=== PATIENT | female | born 1955 | race Caucasian/White ===

== ENCOUNTER 2022-03-23 10:12 | Inpatient (IN) | payer MEDICARE, OTHER, SELFPAY ==
[2022-03-23] VITALS (10 sets, daily range): BP systolic 120–157; BP diastolic 64–75; PULSE 55–78; RESP 18–20; TEMP 36.7–37.2; O2SAT 88–95; BMI 42.4; BMI 42.6
--- NOTE | 2022-03-23 10:44 | CRLHL7_ITS ---
For Patients: As a result of the Century Cures Act, medical imaging exams and procedure reports are released immediately into your electronic medical record. You may view this report before your referring provider. If you have questions, please contact your health care provider. HISTORY: Fever. Shortness of breath. TECHNIQUE: Portable frontal view the chest. COMPARISON: None. FINDINGS: No airspace consolidation. No pleural effusion or pneumothorax. Pulmonary vasculature and cardiomediastinal silhouette are unremarkable. IMPRESSION: No cardiopulmonary abnormality. Dictated by Colten Mendoza MD @ 03/23/2022 12:03:13 PM (Electronically Signed)
--- NOTE | 2022-03-23 10:46 | ED.GENADULT ---
HPI - General Adult General Time Seen by Provider: 10:45 Date Seen: 03/23/22 Chief complaint: Fever Stated complaint: Fever Time Seen by Provider: 03/23/22 10:33 Source: patient Mode of arrival: wheelchair Limitations: no limitations History of Present Illness HPI narrative: The patient is a 67 year white female who lives in [place], doctors with [place] doctor in [place], whose family has been sick for the last week. In fact her family has been sick pre dating her illness, which includes some diarrhea, malaise, fever. Her daughter and granddaughter actually in the ER presently with similar symptoms. She was not immunized for COVID as she was told this could cause ?blood clots?. She is on Coumadin for that purpose. Her BMI is very elevated. She reports that she has a heart murmur, high cholesterol, and is on Coumadin. [place] in [place]. No leg swelling or edema, no chest pain. Her O2 sat on room air was 88% when she arrived. She is not on home oxygen. Related Data Home Medications Medication Instructions Recorded Confirmed albuterol sulfate 90 mcg/actuation 1 - 2 puff INHALATION QID PRN 03/23/22 03/23/22 aerosol inhaler (Ventolin HFA) azelastine 0.05 % eye drops 1 drp OPHTHALMIC (EYE) BID 03/23/22 03/23/22 cetirizine 10 mg tablet 10 mg PO DAILY 03/23/22 03/23/22 cholecalciferol (vitamin D3) 50 50 mcg PO DAILY 03/23/22 03/23/22 mcg (2,000 unit) capsule clotrimazole 1 % topical cream 1 applic TOPICAL BID 03/23/22 03/23/22 conjugated estrogens 0.625 mg/gram 0.625 mg VAGINAL .QHS 03/23/22 03/23/22 vaginal cream (Premarin) diltiazem HCl 300 mg capsule,24 300 mg PO DAILY 03/23/22 03/23/22 hr,extended release (Tiadylt ER) emollient (Vanicream topical) 1 applic TOPICAL DAILY PRN 03/23/22 03/23/22 epinephrine 0.3 mg/0.3 mL 0.3 ml IM Q5-15M PRN 03/23/22 03/23/22 injection, auto-injector (EpiPen) fluticasone propionate 50 2 spray INTRANASAL DAILY 03/23/22 03/23/22 mcg/actuation nasal spray,suspension nystatin 100,000 unit/gram topical 1 applic TOPICAL BID PRN 03/23/22 03/23/22 cream nystatin 100,000 unit/gram topical 1 applic TOPICAL BID PRN 03/23/22 03/23/22 powder (Nystop) pravastatin 80 mg tablet 80 mg PO .QHS 03/23/22 03/23/22 trazodone 100 mg tablet 100 mg PO .QHS 03/23/22 03/23/22 venlafaxine 75 mg capsule,extended 75 mg PO DAILY 03/23/22 03/23/22 release 24 hr warfarin 5 mg tablet (Jantoven) 5 mg PO DAILY 03/23/22 03/23/22 Allergies Allergy/AdvReac Type Severity Reaction Status Date / Time duloxetine Allergy Severe Anaphylaxis Verified 03/23/22 11:11 levofloxacin [From Levaquin] Allergy Severe Anaphylaxis Verified 03/23/22 11:11 doxepin Allergy Unknown Verified 03/23/22 11:11 erythromycin base Allergy Unknown Verified 03/23/22 11:11 fesoterodine [From Toviaz] Allergy Itching Verified 03/23/22 11:11 montelukast Allergy Hives Verified 03/23/22 11:11 morphine Allergy SOB Verified 03/23/22 11:11 oxybutynin Allergy Hives Verified 03/23/22 11:11 pregabalin [From Lyrica] Allergy Hives Verified 03/23/22 11:11 sertraline [From Zoloft] Allergy Hives Verified 03/23/22 11:11 shellfish derived Allergy Itching Verified 03/23/22 11:11 Sulfa (Sulfonamide Allergy Hives Verified 03/23/22 11:11 Antibiotics) citalopram AdvReac Mild Blurred Verified 03/23/22 11:11 Vision Latex, Natural Rubber AdvReac Mild Rash Verified 03/23/22 11:11 bupropion [From Wellbutrin] AdvReac Verified 03/23/22 11:11 NSAIDS (Non-Steroidal AdvReac Diarrhea Verified 03/23/22 11:11 Anti-Inflamma Penicillins AdvReac Verified 03/23/22 11:11 Cilantro Allergy Severe Anaphylaxis Uncoded 03/23/22 11:11 Histamine Allergy Mild Hives Uncoded 03/23/22 11:11 Xanax Allergy Mild Hives Uncoded 03/23/22 11:11 Adhesive Tape - Silicones AdvReac Mild Rash Uncoded 03/23/22 11:11 Review of Systems Status of ROS: Reports: 10 or more systems reviewed and unremarkable except as noted in History and below PFSH [facility] Medical History Chronic pain syndrome Depression DVT (deep venous thrombosis) GERD (gastroesophageal reflux disease) History of cystocele Hyperlipemia Hypertension Migraine Morbid obesity JOSE RAFAEL (obstructive sleep apnea) Osteoarthritis Rectal prolapse Rhinitis, allergic Vitamin D deficiency Surgical History History of hysterectomy History of lumpectomy of right breast History of oophorectomy Family History Daughter DVT (deep venous thrombosis) Mother DVT (deep venous thrombosis) Breast cancer Father Lung cancer Social History Narrative: patient lives in [place] with her daughter, Mattie, daughter's fiance and granddaughter. Her daughter Mattie is healthcare power of charger operator. Patient is undecided about CPR so by default will have her be full code. She clearly states that she does not want to be intubated if she develops respiratory failure with COVID. She is not vaccinated for COVID because she heard that the vaccine causes blood clots. Highest level of school completed/degree received: high school graduate Smoking Status: Former smoker Do you use any of these nicotine containing products: None Second hand tobacco smoke exposure: No How often do you have a drink containing alcohol: monthly or less Alcohol type: hard liquor Alcohol type details: Melissa How many standard drinks containing alcohol do you have on a typical day: 1 or 2 How often do you have six or more drinks on one occasion: Never AUDIT-C Alcohol total score: 1 Non-prescribed substance use: denies use Non-prescribed substance use details: states she has a pain contract Caffeine: Yes (2 cups coffee daily) service: No Exam Narrative: Exam Narrative: Objective: The patient is obese, noncyanotic. Talks in even and nonlabored sentences The pulse oximetry is 80% on room air, 95% with 2 L nasal cannula. She is afebrile HEENT is unremarkable other than dry mucous membranes in the mouth, no facial asymmetry, no scleral icterus Neck is supple Chest diminished air exchange bilaterally no obvious rales or wheezing Heart rate and rhythm regular 2/6 systolic murmur, occasional ectopic beat Abdomen obese benign nontender Extremities without edema, neurologic nonfocal Skin exam is unremarkable, warm and dry. Const: Vital Signs, click to edit/add: Vital Signs - 24 hr 03/23/22 10:22 03/23/22 11:20 Temperature 98.2 F Pulse Rate [Pulse Oximeter] 62 Respiratory Rate 20 Blood Pressure [[facility]] 134/74 Pulse Oximetry 88 95 Course Vital Signs Vital signs: Initial Vital Signs Temperature 98.2 F 03/23/22 10:22 Temperature Source Oral 03/23/22 10:22 Pulse Rate 62 03/23/22 10:22 Respiratory Rate 20 03/23/22 10:22 Blood Pressure 134/74 03/23/22 10:22 Blood Pressure Mean 94 03/23/22 10:22 Blood Pressure Position Supine 03/23/22 10:22 Pulse Oximetry 88 03/23/22 10:22 Oxygen Delivery Method 03/23/22 10:22 Vital Signs Temperature 98.2 F 03/23/22 10:22 Pulse Rate 62 03/23/22 10:22 Respiratory Rate 20 03/23/22 10:22 Blood Pressure 134/74 03/23/22 10:22 Pulse Oximetry 88 03/23/22 10:22 Temperature 98.1 F 03/23/22 15:10 Pulse Rate 62 03/23/22 15:10 Respiratory Rate 20 03/23/22 15:10 Blood Pressure 120/64 03/23/22 15:10 Pulse Oximetry 93 03/23/22 15:10 Medical Decision Making MDM Narrative Medical decision making narrative: The patient presents with hypoxia and generalized malaise, fever, weakness. She is unvaccinated for COVID, and her family members have been sick with a similar type illness. I suspect she has COVID, rule out pneumonia, rule out arrhythmia, rule out metabolic abnormality. The fluids and laboratories will be done. Lab Data Labs: Lab Results 03/23/22 03/23/22 03/23/22 Range/Units 11:20 11:20 11:20 WBC 3.77 L (4.50-11.00) K/uL RBC 3.64 L (4.00-5.20) m/uL Hgb 13.9 (12.0-16.0) gm/dL Hct 41.3 (33.0-51.0) % MCV 114 H (80-100) fL MCH 38 H (26-34) pg MCHC 34 (32-36) gm/dL RDW Coeff of Vinod 13.5 (11.5-15.5) % Plt Count 236 (140-440) K/uL Neut % (Auto) 72.1 H (42.0-72.0) % Lymph % (Auto) 20.2 (20-44) % Nicholas % (Auto) 6.9 (0.0-11.0) % Eos % (Auto) 0.0 (0.0-7.0) % Baso % (Auto) 0.3 (0.0-3.0) % Neut # (Auto) 2.70 (1.7-7.0) K/uL Lymph # (Auto) 0.80 L (0.90-2.90) K/uL Nicholas # (Auto) 0.30 (0.00-0.90) K/UL Eos # (Auto) 0.00 (0.00-0.50) K/uL Baso # (Auto) 0.00 (0.00-0.30) K/uL Abs Immat Gran (auto) 0.02 (0.00-0.30) K/uL Diff Slide Review Acceptable Review (Acceptable) INR 1.37 H (0.91-1.10) Sodium 137 (135-149) mmol/L Potassium 3.5 L (3.6-5.1) mmol/L Chloride 104 (96-114) mmol/L Carbon Dioxide 30 (20-32) mmol/L BUN 12 (7-30) mg/dL Creatinine 0.7 (0.5-1.5) mg/dL Estimated Creat Clear 53.56 Glucose 100 (60-115) mg/dL Lactate (0.5-1.9) mmol/L Calcium 8.3 L (8.4-10.6) mg/dL Total Bilirubin 0.3 (0.1-1.5) mg/dL Direct Bilirubin 0.3 (0.0-0.5) mg/dL AST 63 H (12-35) U/L ALT 37 H (4-35) U/L Alkaline Phosphatase 44 (40-150) U/L C-Reactive Protein < 0.5 L (0.5-1.0) mg/dL NT-Pro-B Natriuret Pep 777 H (0-125) PG/mL Total Protein 6.4 (6.0-8.3) g/dL Albumin 3.6 (3.3-5.0) g/dL SARS-CoV-2 (PCR) (Negative) POC Troponin I (0.01-0.04) ng/ml 03/23/22 03/23/22 03/23/22 Range/Units 11:20 11:20 11:20 WBC (4.50-11.00) K/uL RBC (4.00-5.20) m/uL Hgb (12.0-16.0) gm/dL Hct (33.0-51.0) % MCV (80-100) fL MCH (26-34) pg MCHC (32-36) gm/dL RDW Coeff of Vinod (11.5-15.5) % Plt Count (140-440) K/uL Neut % (Auto) (42.0-72.0) % Lymph % (Auto) (20-44) % Nicholas % (Auto) (0.0-11.0) % Eos % (Auto) (0.0-7.0) % Baso % (Auto) (0.0-3.0) % Neut # (Auto) (1.7-7.0) K/uL Lymph # (Auto) (0.90-2.90) K/uL Nicholas # (Auto) (0.00-0.90) K/UL Eos # (Auto) (0.00-0.50) K/uL Baso # (Auto) (0.00-0.30) K/uL Abs Immat Gran (auto) (0.00-0.30) K/uL Diff Slide Review (Acceptable) INR (0.91-1.10) Sodium (135-149) mmol/L Potassium (3.6-5.1) mmol/L Chloride (96-114) mmol/L Carbon Dioxide (20-32) mmol/L BUN (7-30) mg/dL Creatinine (0.5-1.5) mg/dL Estimated Creat Clear Glucose (60-115) mg/dL Lactate 0.7 (0.5-1.9) mmol/L Calcium (8.4-10.6) mg/dL Total Bilirubin (0.1-1.5) mg/dL Direct Bilirubin (0.0-0.5) mg/dL AST (12-35) U/L ALT (4-35) U/L Alkaline Phosphatase (40-150) U/L C-Reactive Protein (0.5-1.0) mg/dL NT-Pro-B Natriuret Pep (0-125) PG/mL Total Protein (6.0-8.3) g/dL Albumin (3.3-5.0) g/dL SARS-CoV-2 (PCR) POSITIVE (Negative) POC Troponin I 0.03 (0.01-0.04) ng/ml Discharge Plan Discharge Clinical Impression: Fever, Weakness, Hypoxia Patient Disposition: Admitted As Inpatient Condition: Stable Activity Level: Light activity Discharge Diet: Diabetic
--- NOTE | 2022-03-23 10:51 | ED.NURSE ---
Heads up to house sup on possible admission.
[2022-03-23] MEDS: ACETAMINOPHEN 500 MG TABLET 1000 MG PO (11:27)
[2022-03-23] MEDS: 0.9 % SODIUM CHLORIDE 1000 ml 1,000 ML 6000 ML IV (11:27)
[2022-03-23 11:38] LABS: Lactate* 0.7 mmol/L (0.5-1.9)
[2022-03-23 11:44] LABS: Basophils Percent Auto 0.3 % (0.0-3.0); Hematocrit 41.3 % (33.0-51.0); Hemoglobin* 13.9 gm/dL (12.0-16.0); Immature Granulocytes Abs Auto 0.02 K/uL (0.00-0.30); Lymphocytes Percent Auto 20.2 % (20-44); Mean Corpuscular HGB Conc 34 gm/dL (32-36); Mean Corpuscular Hemoglobin 38 pg (26-34); Mean Corpuscular Volume 114 fL (80-100); Monocytes Percent Auto 6.9 % (0.0-11.0); Neutrophils Percent Auto 72.1 % (42.0-72.0); Platelet Count* 236 K/uL (140-440); RDW Coefficient of Variation % 13.5 % (11.5-15.5); Red Blood Count 3.64 m/uL (4.00-5.20); White Blood Count* 3.77 K/uL (4.50-11.00)
[2022-03-23 11:58] LABS: Chloride* 104 mmol/L (96-114)
[2022-03-23 11:59] LABS: Albumin* 3.6 g/dL (3.3-5.0); Potassium* 3.5 mmol/L (3.6-5.1); Sodium* 137 mmol/L (135-149)
[2022-03-23 12:02] LABS: Alkaline Phosphatase* 44 U/L (40-150); Aspartate Amino Transferase* 63 U/L (12-35); Bilirubin Direct* 0.3 mg/dL (0.0-0.5); Bilirubin Total* 0.3 mg/dL (0.1-1.5); Blood Urea Nitrogen* 12 mg/dL (7-30); Carbon Dioxide* 30 mmol/L (20-32); Creatinine* 0.7 mg/dL (0.5-1.5); Est. Creatinine Clearance* 53.56; Estimated Glomerular Filt Rate 93.56; INR 1.37 (0.91-1.10); Prothrombin Time 17.2 Seconds; Total Protein* 6.4 g/dL (6.0-8.3)
[2022-03-23 12:03] LABS: Alanine Aminotransferase* 37 U/L (4-35); Calcium* 8.3 mg/dL (8.4-10.6); Glucose* 100 mg/dL (60-115)
[2022-03-23 12:04] LABS: Troponin, Point-of-Care* 0.03 ng/ml (0.01-0.04)
[2022-03-23 12:06] LABS: Slide Review Reflex Yes
[2022-03-23 12:08] LABS: Slide Review Acceptable Review (Acceptable)
[2022-03-23 12:09] LABS: C Reactive Protein* < 0.5 mg/dL (0.5-1.0)
[2022-03-23 12:11] LABS: NT Pro B Type NatriureticPept* 777 PG/mL (0-125)
[2022-03-23 12:13] LABS: SARS PCR* POSITIVE (Negative)
--- NOTE | 2022-03-23 13:18 | W.PC.EDHO ---
Primary Language: Preferred Language: Orientation Status: [] Alert & Oriented [X] Slight Confusion [] Known Dx Dementia Transfers By: [X] Assist of 1 [] Assist of 2 [] Lift IV Size:20g L upper forearm IV Site Location: Active Medications Generic Name Dose Route Start Last Admin Trade Name Juan PRN Reason Stop Dose Admin Remdesivir 200 mg/ Sodium 290 mls @ 290 mls/hr 03/23/22 13:00 Chloride IVPB 03/23/22 13:59 ONCE ONE Description of Symptoms ED Triage Present Problem Pt arrives w/ multiple symptoms. HUSTON, fever, Description fatigue, and diarrhea. Symptoms started on Thursday. Has been around her family who is also sick. Been using Tylenol for fever. Pt is NOT covid vaccinated. ED Triage Date of Onset of 03/21/22 Symptoms Pain Pain Description [generalized] Throbbing,Chronic Pain Description [generalized] Chronic Pain Intensity [generalized] 5 Pain Intensity 7 Pain Scale Used [generalized] Numeric (1 - 10) Pain Scale Used Numeric (1 - 10) IV Insertion/Site Date of IV Line Insertion [ 03/23/22 Left Upper Arm] Oxygen Administration Pulse Oximetry 95 Pulse Oximetry 88 Oxygen Delivery Method Nasal Cannula Oxygen Delivery Method Room Air Oxygen Flow Rate 3
[2022-03-23] MEDS: dexAMETHasone 2 MG TABLET 6 MG PO (13:25)
--- NOTE | 2022-03-23 13:27 | P.IMHP_ITS ---
Hospitalist- H&P: HPI History of Present Illness Time Seen by Provider: 13:00 Date Seen: 03/23/22 Chief complaint: Fever Narrative: Karla Gamez is a 67 year old female presenting with a 2 day history of fatigue, malaise, cough, dyspnea, fever. Temperature has been between 99 and 102? over the last 2 days. She lives with her daughter, daughter's fiance and granddaughter who all have COVID infection. She is not vaccinated. She has lost her appetite but has been able to eat some soup. Today she had a little bit of diarrhea. No blood. She has no abdominal pain and no chest pain. 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 Review of Systems Narrative: She reports no new pain problems. She has disabling arthritis of the hip and knees. She reports she is pending weight loss so she can have a joint replacement surgery in the future. No chest pain or abdominal pain or headache. No visual disturbance. no trouble swallowing. No trouble eating but no appetite. No vomiting. Bowel function was normal until this morning when she had some diarrhea. She has struggled recently with a groin rash. She does have urinary incontinence. [facility] Medical History (Updated 03/23/22 @ 13:48 by Ross Donovan MD) Chronic pain syndrome Depression DVT (deep venous thrombosis) GERD (gastroesophageal reflux disease) History of cystocele Hyperlipemia Hypertension Migraine Morbid obesity JOSE RAFAEL (obstructive sleep apnea) Osteoarthritis Rectal prolapse Rhinitis, allergic Vitamin D deficiency Surgical History (Updated 03/23/22 @ 13:33 by Ross Donovan MD) History of hysterectomy History of lumpectomy of right breast History of oophorectomy Family History (Updated 03/23/22 @ 13:34 by Ross Donovan MD) Daughter DVT (deep venous thrombosis) Mother DVT (deep venous thrombosis) Breast cancer Father Lung cancer Social History Narrative: patient lives in [place] with her daughter, Mattie, daughter's fiance and granddaughter. Her daughter Mattie is healthcare power of ip technology transactions attorney. Patient is undecided about CPR so by default will have her be full code. She clearly states that she does not want to be intubated if she develops respiratory failure with COVID. She is not vaccinated for COVID because she heard that the vaccine causes blood clots. Smoking Status: Former smoker Do you use any of these nicotine containing products: None Second hand tobacco smoke exposure: No How often do you have a drink containing alcohol: never AUDIT-C Alcohol total score: 0 Non-prescribed substance use: denies use service: No Narrative Narrative: patient lives in [place] with her daughter, Mattie, daughter's fiance and granddaughter. Her daughter Mattie is healthcare power of ip technology transactions attorney. Patient is undecided about CPR so by default will have her be full code. She clearly states that she does not want to be intubated if she develops respiratory failure with COVID. She is not vaccinated for COVID because she heard that the vaccine causes blood clots. Tobacco Smoking Status: Former smoker Do you use any of these nicotine containing products: None Second hand tobacco smoke exposure: No Alcohol - AUDIT-C How often do you have a drink containing alcohol: never AUDIT-C Alcohol total score: 0 Source: Developed by Ronn Steven DR, et al (1998). The AUDIT alcohol consumption questions (AUDIT-C): An effective brief screening test for problem drinking. [employer] (AC[employer]). [employer] Med. [id number]. Drugs Non-prescribed substance use: denies use US History service: No Meds Home Medications and Allergies Home Medications Medication Instructions Recorded Confirmed Type albuterol sulfate 90 mcg/actuation 2 puff INHALATION QID PRN 03/23/22 03/23/22 History aerosol inhaler (Ventolin HFA) azelastine 0.05 % eye drops 1 drp OPHTHALMIC (EYE) BID 03/23/22 03/23/22 History cetirizine 10 mg tablet 10 mg PO DAILY 03/23/22 03/23/22 History cholecalciferol (vitamin D3) 50 50 mcg PO DAILY 03/23/22 03/23/22 History mcg (2,000 unit) capsule clotrimazole 1 % topical cream 1 applic TOPICAL BID 03/23/22 03/23/22 History conjugated estrogens 0.625 mg/gram 0.625 mg VAGINAL .QHS 03/23/22 03/23/22 History vaginal cream (Premarin) diltiazem HCl 300 mg capsule,24 300 mg PO DAILY 03/23/22 03/23/22 History hr,extended release (Tiadylt ER) emollient (Vanicream topical) applic TOPICAL 03/23/22 History epinephrine 0.3 mg/0.3 mL 0.3 ml IM Q5-15M PRN 03/23/22 03/23/22 History injection, auto-injector (EpiPen) fluticasone propionate 50 2 spray INTRANASAL DAILY 03/23/22 03/23/22 History mcg/actuation nasal spray,suspension pravastatin 80 mg tablet 80 mg PO .QHS 03/23/22 03/23/22 History trazodone 100 mg tablet 100 mg PO .QHS 03/23/22 03/23/22 History venlafaxine 75 mg capsule,extended 75 mg PO DAILY 03/23/22 03/23/22 History release 24 hr warfarin 5 mg tablet (Jantoven) 5 mg PO DAILY 03/23/22 03/23/22 History Allergies Allergy/AdvReac Type Severity Reaction Status Date / Time duloxetine Allergy Severe Anaphylaxis Verified 03/23/22 11:11 levofloxacin [From Levaquin] Allergy Severe Anaphylaxis Verified 03/23/22 11:11 doxepin Allergy Unknown Verified 03/23/22 11:11 erythromycin base Allergy Unknown Verified 03/23/22 11:11 fesoterodine [From Toviaz] Allergy Itching Verified 03/23/22 11:11 montelukast Allergy Hives Verified 03/23/22 11:11 morphine Allergy SOB Verified 03/23/22 11:11 oxybutynin Allergy Hives Verified 03/23/22 11:11 pregabalin [From Lyrica] Allergy Hives Verified 03/23/22 11:11 sertraline [From Zoloft] Allergy Hives Verified 03/23/22 11:11 shellfish derived Allergy Itching Verified 03/23/22 11:11 Sulfa (Sulfonamide Allergy Hives Verified 03/23/22 11:11 Antibiotics) citalopram AdvReac Mild Blurred Verified 03/23/22 11:11 Vision Latex, Natural Rubber AdvReac Mild Rash Verified 03/23/22 11:11 bupropion [From Wellbutrin] AdvReac Verified 03/23/22 11:11 NSAIDS (Non-Steroidal AdvReac Diarrhea Verified 03/23/22 11:11 Anti-Inflamma Penicillins AdvReac Verified 03/23/22 11:11 Cilantro Allergy Severe Anaphylaxis Uncoded 03/23/22 11:11 Histamine Allergy Mild Hives Uncoded 03/23/22 11:11 Xanax Allergy Mild Hives Uncoded 03/23/22 11:11 Adhesive Tape - Silicones AdvReac Mild Rash Uncoded 03/23/22 11:11 Exam Narrative: Exam Narrative: She is alert and appears in no distress. She is breathing oxygen via nasal cannula. She gives her own history. She does not recall some details of past history. She is oriented to her circumstances. Head is without trauma. Eyes are normal. Oropharynx with small airway. Neck is supple without mass or adenopathy. Respirations are clear to auscultation. Cardiovascular: S1, S2, 2/6 systolic ejection murmur. No gallop or rub. Abdomen: Bowel sounds active. Abdomen is soft without tenderness or mass. She has 1+ edema in her ankles. Intact pedal pulses. no rash Const: Vital Signs, click to edit/add: Vital Signs - 24 hr 03/23/22 10:22 03/23/22 11:20 Temperature 98.2 F Pulse Rate [Pulse Oximeter] 62 Respiratory Rate 20 [facility] 134/74 Pulse Oximetry 88 95 Documenting provider has reviewed patient's vital signs: yes Hospitalist - H&P: Result Labs Labs: Short CBC 03/23/22 Range/Units 11:20 WBC 3.77 L (4.50-11.00) K/uL Hgb 13.9 (12.0-16.0) gm/dL Hct 41.3 (33.0-51.0) % Plt Count 236 (140-440) K/uL [facility] 03/23/22 11:20 Sodium 137 Potassium 3.5 L Chloride 104 Carbon Dioxide 30 BUN 12 Creatinine 0.7 Glucose 100 Calcium 8.3 L Liver Function 03/23/22 Range/Units 11:20 Total Bilirubin 0.3 (0.1-1.5) mg/dL Direct Bilirubin 0.3 (0.0-0.5) mg/dL AST 63 H (12-35) U/L ALT 37 H (4-35) U/L Alkaline Phosphatase 44 (40-150) U/L Albumin 3.6 (3.3-5.0) g/dL Assessment and Plan Assessment and plan (1) COVID-19: Problem comment: patient is now 48 hours into symptomatic COVID illness. Un vaccinated. Will probably get worse before she gets better. Initiate remdesivir and dexamethasone. Risk factors for severe disease include hypertension and morbid obesity. Clinically suspected JOSE RAFAEL Status: Acute (2) Hypoxia: Problem comment: oxygen supplementation as needed. At risk for JOSE RAFAEL Status: Acute (3) Morbid obesity with BMI of 40.0-44.9, adult: Status: Acute (4) Aortic heart murmur on examination: Problem comment: obtain echo. Trend troponin. Check electrocardiogram. Status: Acute (5) DVT (deep venous thrombosis): Problem comment: History of recurrent DVT. High risk for DVT during his hospitalization. Continue anticoagulation. INR currently subtherapeutic. Status: Acute Assessment and Plan: Total time spent today 75 minutes, 40 minutes in coordination of care and discussing with patient and other providers management of hypoxia, COVID.
--- NOTE | 2022-03-23 14:10 | ED.NURSE ---
Report to ADDY Flower.
--- NOTE | 2022-03-23 16:35 | RESP.RT ---
Patient arrived on room air, SaO2 <88% on room air, patient SOB, placed on Nasal Cannula 3 Lpm, SaO2 increased to 94%. respiratory rate 20/minute, bilateral breath sounds diminished all field. Patient form smoker, has JOSE RAFAEL, home CPAP being brought in for use tonight. Uses Albuterol MDI qid/prn at home.
[2022-03-23] MEDS: WARFARIN 2.5 MG TABLET 7.5 MG PO (17:23)
--- NOTE | 2022-03-23 18:56 | PC.NURSE ---
Shift Note: Pt admitted to M/S at 1430. Bradycardic, HR=59. EKG done and telemetry= Sinus faustino. LS diminished throughout, Spo2 96% on 2L/O2 via NC . Pt was weaned to 1L and SpO2= 90-92%. Minimal desaturation with exertion and brisk upon rest. Remdesivir infused without difficulty. Denies pain at this time but does endorse chronic back, knee, and left hip pain d/t arthritis. Moves well with assist x1 with cane and GB. Loose stools x3, pt is continent but is experiencing urge incontinence of her bowels. She does has urinary stress incontinence as well. Good appetite, ate 75% of supper.
[2022-03-23] MEDS: CETIRIZINE HCL 10 MG TABLET PO (21:15)
[2022-03-23] MEDS: ACETAMINOPHEN 325 MG TABLET 650 MG PO (21:15)
[2022-03-23] MEDS: TRAZODONE HCL 50 MG TABLET 100 MG PO (21:16)
[2022-03-24 03:00] VITALS: BP 142/110; PULSE 70; RESP 18; TEMP 36.8; O2SAT 93
--- NOTE | 2022-03-24 05:08 | PC.NURSE ---
1471-1822: patient is up with SBA and cane, steady gait. patient has had no further loose stools this shift. patient on 1LPM oxygen NC with sats above 90%. tele NSR at times faustino to 50s.
[2022-03-24 05:40] LABS: Appearance Urine Cloudy (Clear); Bilirubin Urine Negative (Negative); Blood Urine Trace-intact (Negative); Color Urine Yellow (Yellow); Glucose Urine Negative (Negative); Ketones Urine Negative (Negative); Leukocyte Esterase Urine Negative (Negative); Nitrite Urine Negative (Negative); Protein Urine 2+ (Negative); Specific Gravity Urine >= 1.030 (1.000-1.030); Urobilinogen Urine 0.2 (0.2-1.0)
[2022-03-24 05:53] LABS: Bacteria Urine Few; RBC Urine 0-2 (0-2); Squamous Epithelial Cell Urine Few (None-Few)
[2022-03-24 06:48] LABS: HCO3 VBG 32 mmol/L (21-28); PCO2 VBG 51 mmHG (40-50); PO2 VBG 44.8 mmHG (25-47); pH VBG 7.403 (7.32-7.43)
[2022-03-24 06:50] LABS: Basophils Percent Auto 0.3 % (0.0-3.0); Hematocrit 41.6 % (33.0-51.0); Hemoglobin* 14.1 gm/dL (12.0-16.0); Immature Granulocytes Abs Auto 0.01 K/uL (0.00-0.30); Lymphocytes Percent Auto 22.4 % (20-44); Mean Corpuscular HGB Conc 34 gm/dL (32-36); Mean Corpuscular Hemoglobin 38 pg (26-34); Mean Corpuscular Volume 112 fL (80-100); Monocytes Percent Auto 7.5 % (0.0-11.0); Neutrophils Percent Auto 69.5 % (42.0-72.0); Platelet Count* 218 K/uL (140-440); RDW Coefficient of Variation % 12.9 % (11.5-15.5); Red Blood Count 3.72 m/uL (4.00-5.20); White Blood Count* 3.22 K/uL (4.50-11.00)
[2022-03-24 07:08] LABS: D Dimer Quantitative* 1.97 ug/ml (0.00-0.50)
[2022-03-24 07:50] VITALS: BP 164/92; PULSE 57; PULSE 61; RESP 18; TEMP 37; O2SAT 92
[2022-03-24 08:10] LABS: Carbon Dioxide* 32 mmol/L (20-32); Chloride* 105 mmol/L (96-114); Potassium* 3.7 mmol/L (3.6-5.1); Sodium* 142 mmol/L (135-149)
[2022-03-24 08:14] LABS: Glucose* 114 mg/dL (60-115)
[2022-03-24 08:19] LABS: Slide Review Reflex Yes
[2022-03-24 08:20] LABS: Slide Review Acceptable Review (Acceptable)
[2022-03-24 09:18] VITALS: TEMP 37
[2022-03-24] MEDS: dilTIAZem 180 MG CAP (CD) PO (09:18)
[2022-03-24] MEDS: dilTIAZem 120 MG CAP.ER.24H PO (09:18)
[2022-03-24] MEDS: ACETAMINOPHEN 325 MG TABLET 650 MG PO (09:18)
[2022-03-24] MEDS: dexAMETHasone 2 MG TABLET 6 MG PO (09:19)
--- NOTE | 2022-03-24 09:26 | PM.DS1 ---
DS: Providers Provider Time Seen by Provider: : Date Seen: 03/24/22 Date of admission: 03/23/22 13:09 Primary care physician: Kecia Cameron MD Admitting Clinician: Ross Donovan MD Consults: 03/23/22 13:13 Consult to Respiratory Therapy [CONS] Routine Comment: Reason(s) for RT Consult:: Consult Attending Physician on discharge: Ross Donovan MD Date of Discharge: 03/24/22 DS: Diagnosis Discharge Diagnosis (1) Aortic heart murmur on examination: Status: Acute Problem details: Recommend echo. patient prefers outpatient echocardiogram (2) COVID-19: Status: Acute Problem details: patient declines Remdesivir. Requesting discharge to home today (3) Hypoxia: Status: Acute Problem details: no longer needing supplemental oxygen to maintain oxygen saturation in the 90s DS: Summary Hospital Course Hospital Course: patient admitted with 2 day history of COVID illness and positive COVID test. She was hypoxic with O2 sats in the 80s on admission. At the time of admission she received Remdesivir 200 mg and dexamethasone 6 mg. Overnight she was able to wean off of oxygen. She is now requesting discharge from the hospital. She does not want any further treatment with Remdesivir. She has a heart murmur suggestive of aortic stenosis. I offered her echocardiogram on admission. Today she tells me she wants to do this as an outpatient. Status at Discharge Functional status at discharge: independent ambulation Time Spent with Patient Time attestation: Total time spent providing and/or coordinating discharge services: Time spent: Greater than 30 minutes Exam Narrative: Exam Narrative: She is alert and appears in no distress. Respirations are clear to auscultation. Cardiovascular: S1, S2, 2/6 systolic ejection murmur. No gallop or rub. Const: Vital Signs, click to edit/add: Vital Signs - 24 hr 03/23/22 10:22 03/23/22 11:20 03/23/22 14:04 Temperature 98.2 F Pulse Rate Pulse Rate [Left A pical] Pulse Rate [Pulse Oximeter] 62 55 L Respiratory Rate 20 18 Blood Pressure [Ri ght Arm] Blood Pressure [Ri ght Upper Arm] 134/74 131/68 Pulse Oximetry 88 95 95 03/23/22 14:40 03/23/22 15:00 03/23/22 15:10 Temperature 98.1 F 98.1 F Pulse Rate Pulse Rate [Left A pical] 62 62 Pulse Rate [Pulse Oximeter] Respiratory Rate 20 20 20 Blood Pressure [Ri ght Arm] 120/64 120/64 Blood Pressure [Ri ght Upper Arm] Pulse Oximetry 93 94 93 03/23/22 16:48 03/23/22 19:00 03/23/22 21:15 Temperature 99 F 99 F Pulse Rate 59 L Pulse Rate [Left A pical] 71 Pulse Rate [Pulse Oximeter] Respiratory Rate 20 Blood Pressure [Ri ght Arm] 140/75 H Blood Pressure [Ri ght Upper Arm] Pulse Oximetry 92 03/23/22 23:00 03/24/22 03:00 03/24/22 07:50 Temperature 98.1 F 98.2 F 98.6 F Pulse Rate 78 57 L Pulse Rate [Left A pical] 60 70 61 Pulse Rate [Pulse Oximeter] Respiratory Rate 20 18 18 Blood Pressure [Ri ght Arm] 157/73 H 142/110 H 164/92 H Blood Pressure [Ri ght Upper Arm] Pulse Oximetry 92 93 92 03/24/22 09:18 Temperature 98.6 F Pulse Rate Pulse Rate [Left A pical] Pulse Rate [Pulse Oximeter] Respiratory Rate Blood Pressure [Ri ght Arm] Blood Pressure [Ri ght Upper Arm] Pulse Oximetry Documenting provider has reviewed patient's vital signs: yes DS: Data Data Completed and Pending Labs on day of discharge: Labs from last 24 hours 03/24/22 03/24/22 03/24/22 06:27 06:27 06:27 WBC RBC Hgb Hct MCV MCH MCHC RDW Coeff of Vinod Plt Count Neut % (Auto) Lymph % (Auto) [place] % (Auto) Eos % (Auto) Baso % (Auto) Neut # (Auto) Lymph # (Auto) [place] # (Auto) Eos # (Auto) Baso # (Auto) Abs Immat Gran (auto) Diff Slide Review INR D-Dimer Quant (PE/DVT) 1.97 H VBG pH 7.403 VBG pCO2 51 H VBG pO2 44.8 VBG HCO3 32 H Sodium 142 Potassium 3.7 Chloride 105 Carbon Dioxide 32 BUN Pending Creatinine Pending Estimated Creat Clear Glucose 114 Lactate Calcium Pending Total Bilirubin Pending Direct Bilirubin AST Pending ALT Pending Alkaline Phosphatase Pending Troponin I Pending C-Reactive Protein Pending NT-Pro-B Natriuret Pep Total Protein Pending Albumin Pending Urine Color Urine Appearance Urine pH Ur Specific [place] Urine Protein Urine Glucose (UA) Urine Ketones Urine Blood Urine Nitrite Urine Bilirubin Urine Urobilinogen Ur Leukocyte Esterase Urine RBC Urine WBC Ur Squamous Epith Cells Urine Bacteria SARS-CoV-2 (PCR) POC Troponin I 03/24/22 03/23/22 03/23/22 06:27 11:20 11:20 WBC 3.22 L RBC 3.72 L Hgb 14.1 Hct 41.6 MCV 112 H MCH 38 H MCHC 34 RDW Coeff of Vinod 12.9 Plt Count 218 Neut % (Auto) 69.5 Lymph % (Auto) 22.4 [place] % (Auto) 7.5 Eos % (Auto) 0.0 Baso % (Auto) 0.3 Neut # (Auto) 2.20 Lymph # (Auto) 0.70 L [place] # (Auto) 0.20 Eos # (Auto) 0.00 Baso # (Auto) 0.00 Abs Immat Gran (auto) 0.01 Diff Slide Review Acceptable Review INR D-Dimer Quant (PE/DVT) VBG pH VBG pCO2 VBG pO2 VBG HCO3 Sodium Potassium Chloride Carbon Dioxide BUN Creatinine Estimated Creat Clear Glucose Lactate Calcium Total Bilirubin Direct Bilirubin AST ALT Alkaline Phosphatase Troponin I C-Reactive Protein NT-Pro-B Natriuret Pep Total Protein Albumin Urine Color Yellow Urine Appearance Cloudy A Urine pH 6.0 Ur Specific [place] >= 1.030 Urine Protein 2+ A Urine Glucose (UA) Negative Urine Ketones Negative Urine Blood Trace-intact A Urine Nitrite Negative Urine Bilirubin Negative Urine Urobilinogen 0.2 Ur Leukocyte Esterase Negative Urine RBC 0-2 Urine WBC 2-5 Ur Squamous Epith Cells Few Urine Bacteria Few A SARS-CoV-2 (PCR) POC Troponin I 0.03 03/23/22 03/23/22 03/23/22 11:20 11:20 11:20 WBC RBC Hgb Hct MCV MCH MCHC RDW Coeff of Vinod Plt Count Neut % (Auto) Lymph % (Auto) [place] % (Auto) Eos % (Auto) Baso % (Auto) Neut # (Auto) Lymph # (Auto) [place] # (Auto) Eos # (Auto) Baso # (Auto) Abs Immat Gran (auto) Diff Slide Review INR D-Dimer Quant (PE/DVT) VBG pH VBG pCO2 VBG pO2 VBG HCO3 Sodium 137 Potassium 3.5 L Chloride 104 Carbon Dioxide 30 BUN 12 Creatinine 0.7 Estimated Creat Clear 53.56 Glucose 100 Lactate 0.7 Calcium 8.3 L Total Bilirubin 0.3 Direct Bilirubin 0.3 AST 63 H ALT 37 H Alkaline Phosphatase 44 Troponin I C-Reactive Protein < 0.5 L NT-Pro-B Natriuret Pep 777 H Total Protein 6.4 Albumin 3.6 Urine Color Urine Appearance Urine pH Ur Specific [place] Urine Protein Urine Glucose (UA) Urine Ketones Urine Blood Urine Nitrite Urine Bilirubin Urine Urobilinogen Ur Leukocyte Esterase Urine RBC Urine WBC Ur Squamous Epith Cells Urine Bacteria SARS-CoV-2 (PCR) POSITIVE POC Troponin I 03/23/22 03/23/22 11:20 11:20 WBC 3.77 L RBC 3.64 L Hgb 13.9 Hct 41.3 MCV 114 H MCH 38 H MCHC 34 RDW Coeff of Vinod 13.5 Plt Count 236 Neut % (Auto) 72.1 H Lymph % (Auto) 20.2 [place] % (Auto) 6.9 Eos % (Auto) 0.0 Baso % (Auto) 0.3 Neut # (Auto) 2.70 Lymph # (Auto) 0.80 L [place] # (Auto) 0.30 Eos # (Auto) 0.00 Baso # (Auto) 0.00 Abs Immat Gran (auto) 0.02 Diff Slide Review Acceptable Review INR 1.37 H D-Dimer Quant (PE/DVT) VBG pH VBG pCO2 VBG pO2 VBG HCO3 Sodium Potassium Chloride Carbon Dioxide BUN Creatinine Estimated Creat Clear Glucose Lactate Calcium Total Bilirubin Direct Bilirubin AST ALT Alkaline Phosphatase Troponin I C-Reactive Protein NT-Pro-B Natriuret Pep Total Protein Albumin Urine Color Urine Appearance Urine pH Ur Specific [place] Urine Protein Urine Glucose (UA) Urine Ketones Urine Blood Urine Nitrite Urine Bilirubin Urine Urobilinogen Ur Leukocyte Esterase Urine RBC Urine WBC Ur Squamous Epith Cells Urine Bacteria SARS-CoV-2 (PCR) POC Troponin I Discharge Plan Discharge Disposition: Home, Self-Care Date of Admission: 03/23/22 13:09 Attending Provider on Discharge: Ross Donovan Primary Care Provider: Kecia Cameron Condition: Stable Anticipated Discharge Date/Time: 03/24/22 09:22 Discharge Medications: Continued albuterol sulfate [Ventolin HFA] 90 mcg/actuation HFA aerosol inhaler 1 - 2 puff INHALATION QID PRN (Reason: shortness of breath or wheezing) 0RF Label Comments: INHALE ONE TO TWO PUFFS BY MOUTH FOUR TIMES A DAY azelastine 0.05 % drops 1 drp OPHTHALMIC (EYE) BID 0RF Label Comments: PLACE 1 DROP IN BOTH EYES TWICE A DAY cetirizine 10 mg tablet 10 mg PO DAILY 0RF Label Comments: TAKE ONE TABLET BY MOUTH EVERY DAY cholecalciferol (vitamin D3) 50 mcg (2,000 unit) capsule 50 mcg PO DAILY 0RF clotrimazole 1 % cream 1 applic topical BID 0RF diltiazem HCl [Tiadylt ER] 300 mg capsule,extended release 24 hr 300 mg PO DAILY 0RF epinephrine [EpiPen] 0.3 mg/0.3 mL auto-injector 0.3 ml IM Q5-15M [id number] Rx Instructions: do not exceed 3 doses per episode fluticasone propionate 50 mcg/actuation spray,suspension 2 spray INTRANASAL DAILY 0RF Label Comments: USE 2 SPRAYS INTO EACH NOSTRIL DAILY. warfarin [Jantoven] 5 mg tablet 5 mg PO DAILY 0RF Label Comments: THIS IS PRESCRIPTION FOR BLOOD THINNER. TAKE DIRECTED BY ANTICOAGULATION CLINIC pravastatin 80 mg tablet 80 mg PO .QHS 0RF Premarin 0.625 mg/gram cream 0.625 mg vaginal .QHS 0RF Label Comments: INSERT 2 GRAMS VAGINALLY AT BEDTIME. trazodone 100 mg tablet 100 mg PO .QHS 0RF Label Comments: TAKE 1 TABLET BY MOUTH EVERY NIGHT AT BEDTIME venlafaxine 75 mg capsule,extended release 24hr 75 mg PO DAILY 0RF emollient [Vanicream] Cream 1 applic topical DAILY PRN0RF Label Comments: for dry skin nystatin [Nystop] 100,000 unit/gram powder 1 applic TOPICAL BID PRN0RF Label Comments: APPLY TOPICALLY TWICE DAILY TO AFFECTED AREA nystatin 100,000 unit/gram cream 1 applic TOPICAL BID PRN0RF Label Comments: APPLY TOPICALLY TO THE AFFECTED AREA TWICE DAILY Discharge Orders: Discharge Order (Routine); Ordered 03/24/22 Ordered By: Ross Donovan Patient Education: COVID-19 (Coronavirus Disease 2019) (DC) Activity Restrictions/Additional Instructions: call your primary care provider for recommendations on dosing your warfarin and arranging a follow-up INR in a week. You have a heart murmur and I recommend that you have an echocardiogram, ultrasound of the heart, to evaluate this. Activity Level: Light activity Discharge Diet: Diabetic Follow Up Appointments: Kecia Cameron MD [Primary Care Provider] - [facility]
[2022-03-24 11:17] LABS: Albumin* 2.8 g/dL (3.3-5.0); Aspartate Amino Transferase* 52 U/L (12-35); Bilirubin Total* 0.2 mg/dL (0.1-1.5); Blood Urea Nitrogen* 12 mg/dL (7-30); Calcium* 8.3 mg/dL (8.4-10.6); Creatinine* 0.6 mg/dL (0.5-1.5); Est. Creatinine Clearance* 53.56; Total Protein* 6.4 g/dL (6.0-8.3)
[2022-03-24 11:18] LABS: Alanine Aminotransferase* 41 U/L (4-35); Alkaline Phosphatase* 39 U/L (40-150)
[2022-03-24 11:19] LABS: C Reactive Protein* < 2.9 mg/dL (0.5-1.0)
--- NOTE | 2022-03-24 11:24 | PC.NURSE ---
Pt is up independently with use of personal cane, pt states she is at her normal for strength and ability to care for self. Pt is on RA, sats in low to mid 90's. Afebrile. Denies pain, nausea, vomiting, and diarrhea. Refuses breakfast, stating she just isn't hungry yet but drinks milagros milind. IV DC'd, cath tip intact. Spoke with daughter on the phone about POC for patient and answered all questions. Pt was given DC instructions verbally and in writing. Answered all questions. Pt was picked up by daughter and daughter's humberto, whom she lives with, to return home @ [id number]. Pt and family understand importance quarantining and mask wearing.
--- NOTE | 2022-03-24 11:43 | PC.NURSE ---
Pt had critical lab results after time of DC. Trop 0.2. Per Dr. Donovan request for publications writer to call pt and recommend direct admission to follow pt. Called and spoke with pt and daughter and informed of lab and recommendation. They said at this time they will call there PCP and see what they recommend. They will call back when they have made a decision of plan.
== END 2022-03-24 10:59 | disposition home or self-care (01) | DRG 178 ==
LOC: ED 11:08 → MEDSURG 13:13
PROVIDERS: Admitting Provider Family Medicine; Emergency Provider Family Medicine; PCP Nurse Practitioner Family; Visit Provider Family Medicine
DX: U07.1 COVID-19 (principal); Z68.41 Body mass index [BMI] 40.0-44.9, adult; E66.01 Morbid (severe) obesity due to excess calories; R09.02 Hypoxemia; G47.33 Obstructive sleep apnea (adult) (pediatric); Z86.718 Personal history of other venous thrombosis and embolism; Z79.01 Long term (current) use of anticoagulants; I10 Essential (primary) hypertension; G89.4 Chronic pain syndrome; F32.A Depression, unspecified; E78.5 Hyperlipidemia, unspecified; I35.8 Other nonrheumatic aortic valve disorders
CPT/HCPCS: 36415; 71045; 80048; 80053; 80076; 81001; 82803; 83605; 83880; 84484; 85025; 85379; 85610; 86140; 87040; 87086; 87635; 93005; 94761; 99284; 99285; A9270; J7030; J7050